=== PATIENT | male | born 1940 | race Caucasian/White ===

== ENCOUNTER → 2016-12-08 | Day surgery (SDC) | payer MEDICARE, OTHER ==
[~2016-12-08] MED LIST: ACETAMINOPHEN 325 MG TAB ONE; ACETYLCHOLINE CHL OPHT SOLN 1:100 2 ML VIAL ONE; ALLO300T2 PO; ASPI1TAB69 PO; CIAL2.5T PO; CYAN1000P SQ; DEXAMETHASONE SOD PHOS 4 MG/ML VIAL ONE; EPINEPHrine HCL (1:1000) 1 MG/ML VIAL ONE; GLUC1CAP16 PO; ICAPCAP PO; LACTATED RINGER'S 1000 ML INJ 1,000 ML ONE; MAGN1TAB14 PO; MOXIFLOXACIN 0.5% OPHT SOLN 3 ML BTL ONE; OMEP20TA PO; ONDANSETRON HCL 4 MG/2 ML VIAL IV PUSH ONE; PHENYLEPHRINE HCL 10% OPTH SOLN 5 ML BTL ONE; PROPOFOL 200 MG/20 ML AMP IV ONE; SODIUM CHLORIDE 0.9% INJ 10 ML ONE; TAMS5CAP PO; TETRACAINE 0.5% OPTH SOLN 4 ML BTL ONE; TOBRAMYCIN/DEXAMETHASONE OPTH OINT 3.5 GM TUBE ONE; TRIAMCINOLONE ACETONIDE 40 MG/ML VIAL ONE; VALS1TAB70 PO; VYTO10TA8 PO; ceFAZolin INJ 1,000 MG VIAL ONE; prednisoLONE ACETATE 1% OPHT SUSP 5 ML BTL ONE
--- NOTE | 2016-12-11 12:30 | MP ---
cc: OLEG FORTUNE MD DATE OF SURGERY: 12/10/2016 PREOPERATIVE DIAGNOSIS Aphakia, left eye. POSTOPERATIVE DIAGNOSIS Aphakia, left eye. PROCEDURE Pars plana vitrectomy, insertion of posterior chamber intraocular lens, MA60AC, 15.5 diopters into the ciliary sulcus, intravitreal Kenalog, left eye. COMPLICATIONS None. ESTIMATED BLOOD LOSS Less than 1 cc. ANESTHESIA General, Dr. Silva INDICATION FOR PROCEDURE This delightful patient previously underwent cataract extraction and pars plana lensectomy and vitrectomy and was left aphakic. The patient presents to md for lens insertion. PROCEDURE NOTE After informed consent was obtained, the patient was brought to the operating room where general anesthesia was established. The left eye was prepped and draped in a sterile fashion with Betadine in the conjunctival fornix. A three-port pars plana vitrectomy was established with a self-retaining infusion cannula. Vitreous traction was relieved. The temporal clear corneal incision was reopened and enlarged with a 3.0 mm keratome. The iris was dissected free from the anterior capsule. An MA60AC, 15.5 diopter intraocular lens was inserted into the ciliary sulcus and rotated into position. The lens was quite stable in this position. Scleral depression examination revealed no retinal holes, tears or detachments. Intravitreal Kenalog was instilled. The clear corneal incision was closed with 10-0 nylon. The trocars were removed and sclerotomies sealed. Subconjunctival injection of Ancef and dexamethasone were given. The eye was patched with Tobramycin ointment. The patient was brought to the recovery room in stable condition. He will continue follow-up with [facility] for his postoperative care. Oleg Fortune MD KW/BT /5:51 PM /12:17 PM
== END | disposition home or self-care (01) ==
LOC: ESDC 09:11
PROVIDERS: ATTEND Ophthalmology
DX: H27.02 Aphakia, left eye (principal)
CPT/HCPCS: 00142; 00145; 66985; 67036; J0690; J1100; J2405; J3010; J3301; J7120; V2632; J0171